=== PATIENT | male | born 1990 | race African-American/Black ===

== ENCOUNTER 2022-10-16 11:39 | Emergency (ER) | payer OTHER ==
[2022-10-16] MEDS ORDERED: Ketorolac Tromethamine 30 MG/ML VIAL ONE (12:58)
== END 2022-10-16 15:59 | disposition home or self-care (01) ==
LOC: CSHERS 11:39
DX: M54.6 Pain in thoracic spine (principal); E78.00 Pure hypercholesterolemia, unspecified
CPT/HCPCS: 72128; 72131; 96372; J1885

== ENCOUNTER 2022-12-02 10:59 | Emergency (ER) | payer OTHER | END 2022-12-02 12:10 | disposition home or self-care (01) | LOC: CSHERS 10:59 | DX: M79.661 Pain in right lower leg (principal); E78.00 Pure hypercholesterolemia, unspecified; W05.0XXA Fall from non-moving wheelchair, initial encounter ==

== ENCOUNTER 2022-12-03 13:42 | Inpatient (IN) | payer OTHER ==
[2022-12-03 14:51] LABS: #Eosinphils 0.1 10x3/uL (0.0-0.5); #Monocytes 0.5 10x3/uL (0.0-1.1); #Neutrophils 3.1 10x3/uL (1.5-8.4); %Basophils 0.8 % (0.0-2.0); %Eosinophils 1.8 % (0.0-6.0); %Lymphocytes 21.9 % (18.0-47.0); %Monocytes 10.6 % (0.0-10.0); %Neutrophils 64.3 % (40.0-75.0); Hemoglobin 13.8 g/dL (13.5-17.5); Mean Corpuscular HGB CONC 34.6 g/dL (32.0-36.0); Mean Corpuscular Hemoglobin 28.1 pg (27.0-33.0); Mean Corpuscular Volume 81.3 fl (81.2-95.1); Mean Platelet Volume 11.3 fl (7.4-10.4); Platelet Count 251 10x3/uL (150-450); RBC Distribution Width 14.8 % (11.5-14.5); Red Blood Cell (RBC) Count 4.91 10x6/uL (4.32-5.72); White Blood Cell (WBC) Count 4.9 10x3/uL (3.5-10.5)
[2022-12-03 15:10] LABS: ALT (SGPT) 74 U/L (8-55); AST (SGOT) 23 U/L (5-34); Albumin 4.2 g/dL (3.5-5.0); Alkaline Phosphatase 72 U/L (40-110); Anion Gap 15 mmol/L (10-20); BUN (Urea Nitrogen) 19 mg/dL (8.9-20.6); Bilirubin, Total 0.5 mg/dL (0.2-1.2); CK (CPK) 100 U/L (30-200); Calc. Creatinine Clearance 0 mL/min (70-130); Calcium 9.4 mg/dL (7.8-10.44); Carbon Dioxide 23 mmol/L (22-29); Chloride 108 mmol/L (98-107); Estimated GFR 123; Globulin 3.1 g/dL (2.4-3.5); Glucose 72 mg/dL (70-105); Protein, Total 7.3 g/dL (6.0-8.3); Sodium 142 mmol/L (136-145)
[2022-12-04] MEDS: 1/2 NS w/KCL 20 mEq 1,000 ML IV SCH ×3 (00:04→22:28)
[2022-12-04 03:40] LABS: Anion Gap 16 mmol/L (10-20); BUN (Urea Nitrogen) 18 mg/dL (8.9-20.6); Calc. Creatinine Clearance 0 mL/min (70-130); Calcium 8.9 mg/dL (7.8-10.44); Carbon Dioxide 21 mmol/L (22-29); Chloride 105 mmol/L (98-107); Estimated GFR 123; Glucose 84 mg/dL (70-105); Potassium 3.5 mmol/L (3.5-5.1); Sodium 138 mmol/L (136-145)
[2022-12-04 09:58] VITALS: BMI 23.1
[2022-12-04 10:42] LABS: SARS-CoV-2 NAA Rapid Test Not Detected (NotDetected)
[2022-12-05] MEDS: 1/2 NS w/KCL 20 mEq 1,000 ML IV SCH ×2 (11:42→13:19)
[2022-12-10] MEDS ORDERED: Milk Of Magnesia 30 ML UDCUP PO PRN (15:50)
[2022-12-12 12:02] VITALS: BP 116/64; TEMP 97.8
== END 2022-12-12 12:54 | disposition home or self-care (01) | DRG 60 ==
LOC: CSHERS 13:42 → CSHERHOLD 20:57 → CSHTELE 12-04 12:38
PROVIDERS: ADMIT Family Medicine; ATTEND Family Medicine
DX: G35 Multiple sclerosis (principal); F12.929 Cannabis use, unspecified with intoxication, unspecified; E78.00 Pure hypercholesterolemia, unspecified; J45.909 Unspecified asthma, uncomplicated; F31.9 Bipolar disorder, unspecified; W19.XXXA Unspecified fall, initial encounter; Z66 Do not resuscitate; Z20.822 Contact with and (suspected) exposure to COVID-19; Q85.00 Neurofibromatosis, unspecified; Z88.8 Allergy status to other drugs, medicaments and biological substances; Z79.899 Other long term (current) drug therapy; Z91.81 History of falling; Y92.009 Unspecified place in unspecified non-institutional (private) residence as the place of occurrence of the external cause
CPT/HCPCS: 36415; 70553; 80048; 80053; 82550; 83735; 85025; 87811; 94760; J1650; J3480; U0002

== ENCOUNTER 2023-03-24 20:48 | Emergency (ER) | payer OTHER ==
[2023-03-24] MEDS ORDERED: Ibuprofen 200 MG TAB ONE (23:08)
== END 2023-03-25 01:12 | disposition home or self-care (01) ==
LOC: CSHERS 20:48
DX: M54.6 Pain in thoracic spine (principal); M79.651 Pain in right thigh; E78.00 Pure hypercholesterolemia, unspecified; J45.909 Unspecified asthma, uncomplicated
CPT/HCPCS: 72128

== ENCOUNTER 2023-06-22 17:36 | Emergency (ER) | payer OTHER ==
[2023-06-22 18:36] LABS: #Monocytes 0.5 10x3/uL (0.0-1.1); #Neutrophils 5.9 10x3/uL (1.5-8.4); %Basophils 0.5 % (0.0-2.0); %Eosinophils 0.3 % (0.0-6.0); %Monocytes 7.1 % (0.0-10.0); %Neutrophils 79.6 % (40.0-75.0); Hemoglobin 13.5 g/dL (13.5-17.5); Mean Corpuscular HGB CONC 34.1 g/dL (32.0-36.0); Mean Corpuscular Hemoglobin 27.1 pg (27.0-33.0); Mean Corpuscular Volume 79.5 fl (81.2-95.1); RBC Distribution Width 14.2 % (11.5-14.5); Red Blood Cell (RBC) Count 4.98 10x6/uL (4.32-5.72); White Blood Cell (WBC) Count 7.4 10x3/uL (3.5-10.5)
[2023-06-22 18:37] LABS: Mean Platelet Volume 12.3 fl (7.4-10.4); Platelet Count 171 10x3/uL (150-450)
[2023-06-22 18:49] LABS: ALT (SGPT) 28 U/L (8-55); AST (SGOT) 24 U/L (5-34); Albumin 4.2 g/dL (3.5-5.0); Alkaline Phosphatase 77 U/L (40-110); Anion Gap 17 mmol/L (10-20); BUN (Urea Nitrogen) 17 mg/dL (8.9-20.6); Bilirubin, Total 0.4 mg/dL (0.2-1.2); Calc. Creatinine Clearance 0 mL/min (70-130); Calcium 8.7 mg/dL (7.8-10.44); Carbon Dioxide 19 mmol/L (22-29); Chloride 107 mmol/L (98-107); Estimated GFR 110; Globulin 3.4 g/dL (2.4-3.5); Glucose 89 mg/dL (70-105); Potassium 4.6 mmol/L (3.5-5.1); Protein, Total 7.6 g/dL (6.0-8.3); Sodium 138 mmol/L (136-145)
== END 2023-06-22 19:08 | disposition home or self-care (01) ==
LOC: CSHERS 17:36
DX: R53.1 Weakness (principal); E78.00 Pure hypercholesterolemia, unspecified
CPT/HCPCS: 36415; 80053; 85025; 99285